=== PATIENT | female | born 1995 | race Caucasian/White ===

== ENCOUNTER 2024-10-21 11:07 | Emergency (ER) | payer OTHER, SELFPAY ==
[2024-10-21 11:14] VITALS: BP 150/98
[2024-10-21 11:42] LABS: COVID-19 Antigen Negative (Negative)
--- NOTE | 2024-10-21 12:25 | ED.GENMED ---
History of Present Illness
General
Chief Complaint: Cold/Flu/URI Symptoms
Source: patient
Exam Limitations: none
Time Seen by Provider: 10/21/24 11:32
Nursing documentation reviewed up to this point in time: agreed with
History of Present Illness
History of Present Illness:
29 yo female with no significant pmhx states 4 days of fever, cough, sore throat, ear pain. Fever 101.6 last night, last Tylenol 5 a.m. Denies n/v/d/c.
Past History
Past History
ED Past Medical History: None
ED Past Surgical History: Other (eye surgery)
Social History
Tobacco: Non-smoker
Alcohol: Occasional
Personal:
Living: with family
Employment: Employed (daycare)
Review of Systems
Review of Systems
Allergies reviewed?: Yes
All Other Systems: ROS reviewed and negative except as documented in HPI and ROS
Constitutional: Reports fever
EENT: Reports sore throat and other (bilateral ear pain)
Respiratory: Reports cough; Denies trouble breathing
Cardiac: Denies chest pain
ABD/GI: Denies abdominal pain, nausea, vomiting or diarrhea
: Denies dysuria or difficulty voiding
Musculoskeletal: Reports no symptoms
Skin: Reports no symptoms
Neurological: Reports no symptoms
Phy Exam
Physical Exam
Physical Exam:
GENERAL: No acute distress. A&Ox3.
CONSTITUTIONAL: T 99.8
EYES: clear, conjunctivae normal
ENMT: moist mucus membranes, Pharynx, uvula mildly elongated, speaking and swallowing well. R TM erythematous, normal L TM.
Neck: No lymphadenopathy
RESPIRATORY: Regular respirations, nonlabored, lungs clear.
CARDIOVASCULAR: Regular rate and rhythm, no murmurs, no rubs.
GI: Soft, nontender, normal BS
MUSCULOSKELETAL: Moves with ease. Well perfused.
SKIN: Warm, dry, pink
PSYCH: Normal mood and affect. Well kept, interactive and appropriate
NEUROLOGIC: Awake, alert and oriented. No focal neurological deficits
Sepsis
Sepsis Screening
Sepsis Assessment: Sepsis Ruled Out
Sepsis Screen
Sepsis Screen: Sepsis Ruled Out
Date: 10/21/24
Time: 15:32
Course
Orders/Labs/Results
Orders:
Orders
10/21/24 11:20
COVID-19 Antigen Urgent
Source: Nasal Swab
Influenza A+B Rapid Molecular Urgent
RAJ Source: Nasal Swab
Specimen Description:
10/21/24 11:49
Throat Culture [Throat Culture, Comprehensive] Urgent
RAJ Source: Throat/Pharynx
Specimen Description:
Date Specimen was Collected: 10/21/24
Time Specimen was Collected: 11:51
10/21/24 11:53
Rapid Strep Group A Urgent
RAJ Source: Throat/Pharynx
Specimen Description:
Date Specimen was Collected: 10/21/24
Time Specimen was Collected: 11:49
Vital Signs
Initial and Last Documented VS:
Initial Vital Signs
Temp Pulse Resp BP Pulse Ox
99.8 F 111 16 150/98 100
10/21/24 11:14 10/21/24 11:14 10/21/24 11:14 10/21/24 11:14 10/21/24 11:14
Last Documented Vital Signs
Temp Pulse Resp BP Pulse Ox
99.8 F 68 20 129/85 98
10/21/24 11:14 10/21/24 13:21 10/21/24 13:21 10/21/24 13:21 10/21/24 13:21
MDM/Problems Addressed
Differential Diagnosis Includes:
COVID, flu, strep throat
MDM/Problems Addressed:
29 yo female with no significant pmhx states 4 days of fever, cough, sore throat, ear pain. Fever 101.6 last night, last Tylenol 5 a.m. Denies n/v/d/c.
Non toxic appearing
Covid neg
Flu A positive
Rapid strep negative
out of window for Tamiflu
*Critical Care Note
Total Time (30-74mins, 75-104mins- exclusive of procedures): Not Applicable
ED Attending Note
-
Portions of this chart may have been created with voice recognition software.� Occasional wrong word or��sound alike� substitutions may have occurred due to the inherent limitations of voice recognition software.
Discharge Plan
Departure
Patient Disposition: Home (Routine Discharge)
Date of Disposition: 10/21/24
Time of Disposition: 13:03
Patient with high blood pressure during this ER visit?: No
Condition: Good
Discharge Problem:
Influenza A
Instructions: Fever, Adult (DC), Flu in adults - ED discharge instructions
Referrals:
Hiren Ibrahim MD [Family Provider] - As needed
Activity Restrictions/Additional Instructions:
As we discussed, you have the flu. Your strep test is negative
Drink plenty of fluids, Tylenol and ibuprofen as needed for fever
Interventions
Interventions:
*Risk Screen - Suicide Last Done: 10/21/24 11:14
*General Assessment Last Done: 10/21/24 13:00
*Neglect/Abuse Screening Last Done: 10/21/24 11:14
*ED COVID-19 Vaccine History Last Done: 10/21/24 13:00
*Nursing Disposition Last Done: 10/21/24 13:21
ED- Pulmonary Assessment Last Done: 10/21/24 13:00
Discharge Date and Time
Discharge Date/Time: 10/21/24 13:22
Print Language: ROMANIAN
[2024-10-21 13:21] VITALS: BP 129/85
== END 2024-10-21 13:22 | disposition home or self-care (01) ==
LOC: EMR 11:07
PROVIDERS: EMERGENCY PHYSICIAN Emergency Medicine; FAMILY PHYSICIAN Internal Medicine
DX: J10.1 Influenza due to other identified influenza virus with other respiratory manifestations (principal)
CPT/HCPCS: 99283; 87070; 87502; 87811; 87880